=== PATIENT | male | born 1970 | race Caucasian/White ===

== ENCOUNTER 2021-01-10 23:29 | Emergency (ER) | payer OTHER ==
[~2021-01-10] VITALS: Ht 175.3 cm; Wt 90.0 kg
[2021-01-11] MEDS ORDERED: ACETAMINOPHEN WITH CODEINE 300/30MG TABLET PO STA (00:45)
[2021-01-11] MEDS ORDERED: KETOROLAC 60MG/2ML VIAL IM STA (00:45)
[2021-01-11] MEDS ORDERED: NAPR-681 PO (03:18)
[2021-01-11] MEDS ORDERED: T3 PO (03:18)
[2021-01-11 03:29] VITALS: BP 118/83
== END 2021-01-11 04:00 | disposition home or self-care (01) ==
LOC: ER 23:35
DX: S32.048A Other fracture of fourth lumbar vertebra, initial encounter for closed fracture (principal); M25.561 Pain in right knee; W01.0XXA Fall on same level from slipping, tripping and stumbling without subsequent striking against object, initial encounter; Y93.89 Activity, other specified; Y92.010 Kitchen of single-family (private) house as the place of occurrence of the external cause; M19.90 Unspecified osteoarthritis, unspecified site
CPT/HCPCS: 72100; 73562; 93005; 96372; 99284; J1885